=== PATIENT | male | born 1955 ===

== ENCOUNTER 2017-11-12 11:58 | Day surgery (SDC) | payer OTHER ==
[2017-11-05 09:10] VITALS: BMI 31.9
[2017-11-12] MEDS ORDERED: Midazolam 2 MG/2 ML VIAL ONE (15:49)
[2017-11-12] MEDS ORDERED: Propofol 10 mg/ml Inj (20 ML) ONE ×2 (15:49→15:58)
[2017-11-12] MEDS ORDERED: cefTRIAXone (Rocephin) 1 gm Inj ONE (15:50)
[2017-11-12] MEDS ORDERED: HYDROmorphone 0.5 mg/0.5 ml ISec IVP PRN (16:43)
[2017-11-12] MEDS ORDERED: Sodium Chloride 0.9% 1,000 ML IV SCH (16:45)
[2017-11-12 17:45] VITALS: RESP 18; O2SAT 98
[2017-11-12 18:08] VITALS: BP 129/85; PULSE 65; TEMP 97.6
--- NOTE | 2017-12-02 08:07 | OP ---
PROCEDURE DATE: 11/12/2017 PREOPERATIVE DIAGNOSES: Urinary retention, voiding dysfunction, decreased urine, incomplete bladder emptying, hematuria. POSTOPERATIVE DIAGNOSES: Urinary retention, voiding dysfunction, decreased urine, incomplete bladder emptying, hematuria. PROCEDURE: PVP GreenLight laser, that is photovaporization of the prostate and a GreenLight laser energy. COMPLICATIONS: None. BLOOD LOSS: Less than 25 mL. At the termination of the procedure, the patient is wide open. INDICATIONS: See the history and physical for further details. A very pleasant gentleman here for the above procedure. We discussed risks, benefits, and alternatives, 62-year-old. We discussed urinary retention. We discussed the procedure not working. We discussed retrograde ejaculation. We discussed many other things as well. We discussed . DESCRIPTION OF PROCEDURE: After obtaining informed consent, the patient was placed on the table. Routine monitors were placed. Time-outs were called to confirm the patient positioning. Antibiotic prophylaxis had been used. We introduced the continuous flow resectoscope under direct vision. We had identified all landmarks, the verumontanum identified, the ureteral orifice identified. We now proceeded carefully, meticulously started with 80 de anda. We go between 5 and 7. We go ____ 7 to 11, 5 and 1. Then we go along the roof. With anticoagulation, we will make sure that we are achieving good hemostasis and we will where we are reevaluate anatomically. We do a wide open. At this point, we turned off all the bladder irrigation, essentially no bleeding. If any bleeding is noted, it is cauterized. Although patient tolerated without complications, we inserted Bucio catheter via urethra, we placed about 50 mL of balloon, put it on a mild traction, urine stayed clear. The patient tolerated the procedure without complications. Jorge Valencia MD
--- NOTE | 2017-12-02 10:24 | PN ---
DATE: 12/01/2017 IMMEDIATE POSTOPERATIVE NOTE See the history and physical and operative report. The patient underwent a PVP. He is in recovery room. PREOPERATIVE DIAGNOSES: Urinary retention, decreased flow stream, incomplete bladder emptying. POSTOPERATIVE DIAGNOSES: Urinary retention, decreased flow stream, incomplete bladder emptying. PROCEDURE: PVP GreenLight laser. Patient tolerated the procedure without complications. Vital signs currently stable. Urine is clear. The plans is as previous. Jorge Valencia MD
--- NOTE | 2017-12-02 14:38 | HP ---
REASON FOR ADMISSION: Urinary retention. HISTORY OF PRESENT ILLNESS: Mr. Laird is a very pleasant gentleman, discussed the options . He is 62 years old. He has voiding dysfunction, decreased flow stream, nocturia, irritative . He is today PVP GreenLight laser therapy. PAST MEDICAL HISTORY: As listed on the chart. No history of DC or CVA. PAST SURGICAL HISTORY: As listed on the chart. SOCIAL HISTORY: Unremarkable. REVIEW OF SYSTEMS: No weight loss or chest pain. MEDICATIONS: See chart. PHYSICAL EXAMINATION: GENERAL: . VITAL SIGNS: Within normal as in chart. HEENT: . NECK: No cervical or axillary lymphadenopathy. LUNGS: Clear. HEART: Normal S1 and S2. ABDOMEN: Soft and nontender. EXTREMITIES: mass appreciated. . RECTAL: . NEUROLOGIC: Unremarkable. LABORATORY DATA: See chart. DIAGNOSES: Urinary retention, voiding dysfunction, decreased flow stream, nocturia, irritative complaints. PLAN: 1. We are going to plan for antibiotic prophylaxis. 2. PVP GreenLight laser. We discussed with the patient the options, risks, benefits of the procedure. We discussed retrograde ejaculation. We discussed the fact that sometimes the surgery future scarring. After discussing all these different options with the patient at length and more, we are planning to proceed. The plan is as follows; 1. Antibiotic prophylaxis. 2. PVP GreenLight laser therapy. Then further plan will follow. Jorge Valencia MD
== END 2017-11-12 19:00 | disposition home or self-care (01) ==
LOC: SDS 11:58
PROVIDERS: ATTEND Urology
DX: N40.1 Benign prostatic hyperplasia with lower urinary tract symptoms (principal); R33.8 Other retention of urine; R39.14 Feeling of incomplete bladder emptying; R35.1 Nocturia; R31.9 Hematuria, unspecified
CPT/HCPCS: 52648; J0696; J1170; J2250; J2704; J3010; J7040; J7120